=== PATIENT | male | born 2005 | race Caucasian/White ===

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

== ENCOUNTER 2024-09-14 06:28 | Emergency (ER) | payer BC ==
[~2024-09-14] VITALS: Ht 185.4 cm; Wt 92.7 kg
[~2024-09-14 06:28] MED LIST: ONDA-243 PO
[2024-09-14 06:30] VITALS: TEMP 97.2
--- NOTE | 2024-09-14 07:12 | Physician Documentation ---
History of Present Illness ~ Chief Complaint: Rash Stated Complaint: POISON OAK Time Seen by MD: 06:59 Primary Medical Doctor: NONE HPI 19-year-old male presenting with a generalized rash mainly on his hands, arms and legs. Patient reports that he was cleaning the yard and came into contact with a lot of plants and likely sustained poison oak. He complains of a rash as well as significant itching. Reports that he took some Benadryl with very minimal relief. And denies any shortness of breath or any other associated symptoms. Generally healthy with no other medical issues. Medication Reconciliation Allergies: Coded Allergies: Cephalosporins (Verified Allergy, Unknown, 09/14/24) Penicillins (Verified Allergy, Unknown, 09/14/24) Scheduled PRN ONDANSETRON ODT 4mg tablet (Ondansetron Odt), 1 TAB PO Q6H PRN PRN for nausea/vomiting Past Medical History Past Medical History: No Pertinent History Physical Exam Vital Signs: Temperature: 97.2, Source: Temporal, Heart Rate: 92, Respiratory Rate: 18, BP: 148/94, Pulse Oximetry: 100, Weight: 92.650 Physical Exam I have reviewed the triage vitals. CONST: Well developed and well nourished. In no acute distress HENT: Head Atraumatic EYES: Pupils are equal, round and reactive to light. Normal conjunctiva NECK: Normal range of motion. Supple. CARDIO: Normal rate and regular rhythm. No murmurs, rubs, or gallops. S1, S2. PULM/CHEST: No respiratory distress. Lungs clear to auscultation. No wheeze ABD: Soft and nontender. Nondistended. Bowel sounds normal. No guarding. : Exam deferred MSK: No edema. No deformity. NEURO: Alert and oriented to person, place and time. Moving all extremities SKIN: Warm and dry. There is a generalized erythematous excoriated rash on the hands, arms and legs PSYCH: Normal mood and affect. Good eye contact. Progress Results/Orders Results/Orders Orders - JANA IVAN MD Prednisone Tablet (Prednisone Tablet) (09/14/24 07:05) Vital Signs 09/14/24 06:30 Temp 97.2 Pulse 92 Resp 18 B/P (MAP) 148/94 Pulse Ox 100 Medical Decision Making Additional Comment 19-year-old generally healthy male presenting with poison oak contact dermatitis. Patient was medicated with 60 mg of p.o. prednisone in the emergency department. I will also prescribe him a Medrol Dosepak for further symptomatic relief over the next several days. Patient was advised to use moisturizing creams and Benadryl as needed for itching. Monitor for improvement and resolution. Follow up with primary care physician as needed or return to the ED with any worsening symptoms. Departure Disposition: HOME / SELF CARE / HOMELESS Impression: Primary Impression: Allergic contact dermatitis Additional Impression: Poison oak dermatitis Discharge Instructions: Contact Dermatitis Referrals: NO PRIMARY CARE PROVIDER (PCP) Prescriptions Methylprednisolone (Medrol Dosepak) 4 Mg Tab.ds.pk 0 PO UD, #21 TAB 0 Refills take 6 Pills Day 1, 5 Pills Day 2, 4 Pills Day 3, 3 Pills Day 4, 2 Pills Day 5 and 1 pill Day 6 Prov: JANA IVAN MD 09/14/24 Comments Take medication as prescribed. Monitor symptoms for improvement and resolution. Follow up with primary care physician or return to the ED with any acutely worsening symptoms. Education Educated: Patient Educated regarding: diagnosis, treatment, prognosis Additional Comment Take medication as prescribed. Monitor symptoms for improvement and resolution. Follow up with primary care physician or return to the ED with any acutely worsening symptoms. Signature Scribe Signature: 1 Attestation: 1 JANA IVAN MD Sep 14, 2024 07:12
[2024-09-14] MEDS: predniSONE 20 mg tablet PO ONE (07:13)
[2024-09-14] MEDS ORDERED: METH4TAB81 PO (07:14)
[2024-09-14 07:16] VITALS: BP 134/77; PULSE 86; RESP 17; O2SAT 100
== END 2024-09-14 07:25 | disposition home or self-care (01) ==
LOC: ER 06:28
DX: L23.7 Allergic contact dermatitis due to plants, except food (principal); Z88.1 Allergy status to other antibiotic agents; Z88.0 Allergy status to penicillin
CPT/HCPCS: 99283; J7512

== ENCOUNTER 2024-09-30 12:01 | Emergency (ER) | payer BC ==
[~2024-09-30] VITALS: Ht 185.4 cm; Wt 90.9 kg
[~2024-09-30 12:01] MED LIST changes: +METH4TAB81 PO
[2024-09-30 12:06] VITALS: TEMP 98
--- NOTE | 2024-09-30 12:33 | Physician Documentation ---
History of Present Illness ~ Chief Complaint: Laceration Stated Complaint: FINGER LAC Time Seen by MD: 12:28 Primary Medical Doctor: NONE HPI 19 yr Male presents to the ED complaint of a laceration on his right thumb. Working outside occurred the laceration. Does not know if he is up-to-date on tetanus Tetanus Within 5 Years: No Medication Reconciliation Allergies: Coded Allergies: Cephalosporins (Verified Allergy, Unknown, 09/14/24) Penicillins (Verified Allergy, Unknown, 09/14/24) Scheduled Methylprednisolone (Medrol Dosepak), 0 PO UD Scheduled PRN ONDANSETRON ODT 4mg tablet (Ondansetron Odt), 1 TAB PO Q6H PRN PRN for nausea/vomiting Past Medical History Past Medical History: No Pertinent History Physical Exam Vital Signs: Temperature: 98.0, Source: Temporal, Heart Rate: 109, Respiratory Rate: 16, BP: 149/102, Pulse Oximetry: 97, Weight: 90.910 Oxygen Flow Rate: 0 Physical Exam General: Alert, no apparent distress. HEENT: PERRL, EOMI, no injection, moist mucous membranes. Extremities: Normal range of motion, no deformity. right thumb 2 cm minor laceration anterior Neurologic: Oriented x4. Psychiatric: Normal mood and affect. Skin: Normal color, warm and dry. No edema, no ecchymosis. Procedures Laceration/Wound Repair Laceration : Anesthesia: none Prep: irrigated by nurse Margins: revised Repaired: skin Wound Repaired With: Dermabond Tolerated Procedure Well?: yes, no complications Progress Results/Orders Results/Orders Orders - ZACHARY PORTILLO [employer] General Nursing Order (09/30/24 ) Completed Orders - ZACHARY PORTILLO [employer] Lidocaine/Epi/Tetracaine Top (Lidocaine/ (09/30/24 12:30) Medications Received in ER Medications (Trade) Dose Ordered Sig/Mima Route PRN Reason Start Time Stop Time Status Last Admin Dose Admin (LIDOcaine/ epiNEPH/ tetracaine top rosibel 3ml SYR) 5 ml ONCE ONCE TOP 09/30/24 12:30 09/30/24 12:31 DC 09/30/24 12:57 5 ML Vital Signs 09/30/24 12:06 Temp 98.0 Pulse 109 Resp 16 B/P (MAP) 149/102 Pulse Ox 97 O2 Flow Rate 0 Medical Decision Making Findings Irrigated and cleansed of the thumb after receiving LET. The 2 cm laceration did not appear to be full-thickness therefore opted to use Dermabond. Departure Disposition: HOME / SELF CARE / HOMELESS Impression: Primary Impression: Laceration Condition: Stable Discharge Instructions: Laceration Care (Skin Glue) Referrals: NO PRIMARY CARE PROVIDER (PCP) Signature Scribe Signature: df Attestation: The note accurately reflects work and decisions made by me.Zachary Cardenas NP 09/30/24 12:32 ZACHARY PORTILLO NP September 30, 2024 12:33
[2024-09-30] MEDS: LIDOcaine/epinephrine/tetracaine TOPICAL sol 3 ML syringe TOP ONE (12:57)
[2024-09-30 13:30] VITALS: BP 127/85; PULSE 86; RESP 14; O2SAT 97
== END 2024-09-30 13:31 | disposition home or self-care (01) ==
LOC: ER 12:02
DX: S61.011A Laceration without foreign body of right thumb without damage to nail, initial encounter (principal); Z88.0 Allergy status to penicillin; Z88.1 Allergy status to other antibiotic agents; X58.XXXA Exposure to other specified factors, initial encounter; Y93.89 Activity, other specified; Y92.89 Other specified places as the place of occurrence of the external cause; Y99.8 Other external cause status
CPT/HCPCS: 12001; 99282; J3490

== ENCOUNTER 2024-10-21 18:45 | Emergency (ER) | payer BC ==
[~2024-10-21] VITALS: Ht 185.4 cm; Wt 93.2 kg
[2024-10-21 19:00] VITALS: BP 150/89; PULSE 80; RESP 16; O2SAT 97
[2024-10-21] MEDS: LidoCAINE 2% Topical Jelly 11mL syringe (UROJET) TOP ONE (20:18)
--- NOTE | 2024-10-21 20:30 | Physician Documentation ---
History of Present Illness ~ Chief Complaint: Wound Stated Complaint: INFECTION ON FOOT Time Seen by MD: 19:45 Primary Medical Doctor: NONE HPI This is a 19-year-old male who presents with wound to the sole of his left foot sustained four days ago while riding his scooter barefoot, patient reports is tender to walk on the injured foot he is concerned for an infection is the appe ars to be a red streak on the bottom of his foot. Tetanus within 5 years?: Yes (MORE THAN 5 YRS AGO) Medication Reconciliation Allergies: Coded Allergies: Cephalosporins (Verified Allergy, Unknown, 10/21/24) Penicillins (Verified Allergy, Unknown, 10/21/24) Scheduled Clindamycin HCl (Clindamycin HCl), 3 CAP PO Q8H Methylprednisolone (Medrol Dosepak), 0 PO UD Scheduled PRN ONDANSETRON ODT 4mg tablet (Ondansetron Odt), 1 TAB PO Q6H PRN PRN for nausea/vomiting Past Medical History Past Medical History: No Pertinent History Review of Systems ROS Left foot pain as stated above in the HPI, otherwise all systems are reviewed and negative. Physical Exam Vital Signs: Temperature: 97.1, Source: Temporal, Heart Rate: 80, Respiratory Rate: 16, BP: 150/89, Pulse Oximetry: 97, Weight: 93.200 Oxygen Flow Rate: 0 Physical Exam VITALS: Reviewed and as above. GENERAL: Alert, nontoxic appearing, no apparent distress. RESPIRATORY: No increased work of breathing, no respiratory distress, speaking in full clear sentences MUSCULOSKELETAL: Area of wound to the plantar aspect of left foot is tender to palpation otherwise foot nontender to palpation, brisk capillary refill, strong pedal pulse SKIN: Approximately 1 cm round shallow wound to the plantar aspect of left mid foot with some surrounding mild erythema without purulent discharge Progress Results/Orders Results/Orders Completed Orders - TU BERNABE Lidocaine 2% Jelly 11ml Syr (Glydo-Lidoc (10/21/24 20:10) Clindamycin Capsule (Cleocin Capsule) (10/21/24 20:35) Ibuprofen Tablet (Motrin Tablet) (10/21/24 20:35) Medications Received in ER Medications (Trade) Dose Ordered Sig/Mima Route PRN Reason Start Time Stop Time Status Last Admin Dose Admin (GLYDO-Lidocaine 2% Topical Jelly 11mL syringe) 1 applic ONCE ONCE TOP 10/21/24 20:10 10/21/24 20:11 DC 10/21/24 20:18 1 APPLIC (Cleocin capsule) 450 mg ONCE ONCE PO 10/21/24 20:35 10/21/24 20:36 DC 10/21/24 20:55 450 MG (Motrin tablet) 400 mg ONCE ONCE PO 10/21/24 20:35 10/21/24 20:36 DC 10/21/24 20:55 400 MG Vital Signs 10/21/24 10/21/24 19:00 20:48 Temp 97.1 97.1 Pulse 80 Resp 16 B/P (MAP) 150/89 Pulse Ox 97 O2 Flow Rate 0 Medical Decision Making Findings This 19-year-old male presented with a shallow wound to the plantar aspect of his left foot, there was surrounding erythema concerning for early infection however there was no evidence of significant cellulitis, abscess, retained foreign body, deep space infection, neurovascular injury, or fracture or dislocation. Patient was otherwise well reporting no systemic symptoms and physical exam was benign. Vital signs stable. Wound care provided by nursing staff. Patient is appropriate for outpatient follow up. As there was concern for developing infection patient will be placed on short course of oral antibiotics. Patient provided home care instructions and return to care precautions which he verbalized understanding of. Differential Dx:Considerations: Include: Abscess, Cellulitis, Healing wound, Other (Retained foreign body, neurovascular injury, fracture, dislocation) Departure Disposition: 01 HOME / SELF CARE / HOMELESS Impression: Primary Impression: Wound Condition: Improved Discharge Instructions: How to Change Your Wound Dressing Additional Instructions: Take the antibiotics as prescribed, keep the area clean dry and covered. Please follow up with your primary care provider in the next few days. Please return to the emergency department for any new or worsening concerning symptoms. Referrals: NO PRIMARY CARE PROVIDER (PCP) Prescriptions Clindamycin HCl (Clindamycin HCl) 150 Mg Capsule 3 CAP PO Q8H for 5 Days, #45 CAP Prov: TU BERNABE 10/21/24 Education Educated: Patient Educated regarding: diagnosis, treatment, prognosis, need for follow up Signature Scribe Signature: No scribe Attestation: The note accurately reflects work and decisions made by me.PARAMJIT Servin 10/22/24 02:05 TU BERNABE Oct 21, 2024 20:30
[2024-10-21] MEDS ORDERED: CLIN-30 PO (20:34)
[2024-10-21 20:48] VITALS: TEMP 97.1
[2024-10-21] MEDS: clindamycin 150mg capsule PO ONE (20:55)
[2024-10-21] MEDS: ibuprofen tablet 400 MG TABLET PO ONE (20:55)
== END 2024-10-21 20:58 | disposition home or self-care (01) ==
LOC: ER 18:45
DX: S90.922A Unspecified superficial injury of left foot, initial encounter (principal); Z88.0 Allergy status to penicillin; Z88.1 Allergy status to other antibiotic agents; X58.XXXA Exposure to other specified factors, initial encounter; Y93.55 Activity, bike riding; Y92.89 Other specified places as the place of occurrence of the external cause; Y99.8 Other external cause status
CPT/HCPCS: 99284

== ENCOUNTER 2025-01-18 10:01 | Emergency (ER) | payer BC ==
[~2025-01-18] VITALS: Ht 185.4 cm; Wt 91.3 kg
[2025-01-18 10:25] VITALS: BP 132/81; PULSE 88; RESP 18; TEMP 98.1; O2SAT 97
--- NOTE | 2025-01-18 10:42 | Physician Documentation ---
HPI ~ General Chief Complaint: Medication Refill Stated Complaint: MED REFILL Time Seen by MD: 10:41 Primary Medical Doctor: NONE History of Present Illness HPI Comments This is a 19-year-old male who is preparing to [place]. He has traveled before, and got into some trouble with being unable to obtain needed medications for illness. 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 He otherwise reports that he feels well, denies any other concerns today. Medication Reconciliation Allergies: Coded Allergies: Cephalosporins (Verified Allergy, Unknown, 10/21/24) Penicillins (Verified Allergy, Unknown, 10/21/24) Scheduled Azithromycin (Azithromycin), 1 TAB PO UD Doxycycline Hyclate (Doxycycline Hyclate), 1 CAP PO Q12H Epinephrine (Epipen 2-Darron), 1 SYR IM ONCE Methylprednisolone (Medrol Dosepak), 0 PO UD Sertraline HCl (Sertraline HCl), 1 TAB PO DAILY Scheduled PRN Albuterol Sulfate (Ventolin Hfa), 2 PUFFS INH Q4HPRN PRN for wheezing ONDANSETRON ODT 4mg tablet (Ondansetron Odt), 1 TAB PO Q6H PRN PRN for nausea/vomiting Ondansetron 8mg ODT (Ondansetron Odt), 1 TAB PO TID PRN for nausea/vomiting Past Medical History Past Medical History: No Pertinent History Review of Systems ROS As stated above in the HPI, otherwise all systems are reviewed and negative. Physical Exam Physical Exam Vital Signs: Temperature: 98.1, Source: Temporal, Heart Rate: 88, Respiratory Rate: 18, BP: 132/81, Pulse Oximetry: 97, Weight: 91.300 Oxygen Flow Rate: 0 Physical Exam General: Alert, no apparent distress. HEENT: PERRL, EOMI, no injection, moist mucous membranes. Neck: Full range of motion. Respiratory: Lungs clear, no respiratory distress. Chest: No accessory muscle use. Cardiovascular: Regular rate and rhythm, no murmurs. Gastrointestinal: Soft, nontender, nondistended. Bowels sounds present. Extremities: Normal range of motion, no deformity. Neurologic: Oriented x4. Psychiatric: Normal mood and affect. Skin: Normal color, warm and dry. No edema, no ecchymosis. Progress Results/Orders Results/Orders Vital Signs 01/18/25 10:25 Temp 98.1 Pulse 88 Resp 18 B/P (MAP) 132/81 Pulse Ox 97 O2 Flow Rate 0 Medical Decision Making Differential Dx:Considerations: Include: Adverse circumstances, Economic, Psychosocial, Medical services unavail., Medication refill, Medication non- compliance Departure Time of Disposition: 10:41 Impression: Primary Impression: General medical exam Condition: Stable Discharge Instructions: Medicine Refill at the Emergency Department Referrals: NO PRIMARY CARE PROVIDER (PCP) Prescriptions Albuterol Sulfate (Ventolin Hfa) 90 Mcg Hfa.aer.ad 2 PUFFS INH Q4HPRN PRN for wheezing for 30 Days, #18 GM 0 Refills Prov: JULIANA PRABHAKAR NP 01/18/25 Ondansetron 8mg ODT (Ondansetron Odt) 8 Mg Tab.rapdis 1 TAB PO TID PRN for nausea/vomiting, #10 TAB Prov: JULIANA PRABHAKAR NP 01/18/25 Sertraline HCl (Sertraline HCl) 50 Mg Tablet 1 TAB PO DAILY for 60 Days, #60 TAB Prov: JULIANA PRABHAKAR NP 01/18/25 Epinephrine (Epipen 2-Darron) 0.3 Mg/0.3 Ml Auto.injct 1 SYR IM ONCE for 1 Day, #1 PKT 0 Refills Prov: JULIANA PRABHAKAR NP 01/18/25 Azithromycin (Azithromycin) 250 Mg Tablet 1 TAB PO UD for 5 Days, #6 TAB 2 the first day followed by 1 for days 2-5 Prov: JULIANA PRABHAKAR NP 01/18/25 Doxycycline Hyclate (Doxycycline Hyclate) 100 Mg Capsule 1 CAP PO Q12H for 10 Days, #20 CAP Prov: JULIANA PRABHAKAR NP 01/18/25 Education Educated: Patient Educated regarding: diagnosis, treatment, prognosis, need for follow up Signature Scribe Signature: x Attestation: The note accurately reflects work and decisions made by me.Juliana Cardenas NP 01/18/25 11:18 JULIANA PRABHAKAR NP Jan 18, 2025 10:42
[2025-01-18] MEDS ORDERED: EPIN0.3P3 IM (10:46)
[2025-01-18] MEDS ORDERED: AZIT250T27 PO (10:46)
[2025-01-18] MEDS ORDERED: DOXY-224 PO (10:46)
[2025-01-18] MEDS ORDERED: SERT-153 PO (10:46)
[2025-01-18] MEDS ORDERED: ONDA-245 PO (10:48)
[2025-01-18] MEDS ORDERED: ALBU18HF2 INH (10:48)
== END 2025-01-18 11:03 | disposition home or self-care (01) ==
LOC: ER 10:02
DX: Z00.00 Encounter for general adult medical examination without abnormal findings (principal); Z76.0 Encounter for issue of repeat prescription; Z88.0 Allergy status to penicillin; Z88.1 Allergy status to other antibiotic agents; Z79.899 Other long term (current) drug therapy
CPT/HCPCS: 99281; 99283